=== PATIENT | female | born 1955 | race Caucasian/White ===

== ENCOUNTER 2017-08-17 09:14 | Outpatient (CLI) | payer OTHER | END 2017-08-17 09:16 | disposition home or self-care (01) | LOC: SONOGRAMA 09:14 | DX: E04.1 Nontoxic single thyroid nodule (principal) ==

== ENCOUNTER 2021-06-30 07:44 | Outpatient (CLI) | payer OTHER | END 2021-06-30 11:20 | disposition home or self-care (01) | LOC: SONOGRAMA 07:44 | PROVIDERS: ATTEND Pathology Anatomic Pathology & Clinical Pathology | DX: D34 Benign neoplasm of thyroid gland (principal); E06.3 Autoimmune thyroiditis ==